=== PATIENT | female | born 2000 | race Caucasian/White ===

== ENCOUNTER 2022-10-07 07:44 | Emergency (ER) | payer OTHER, SELFPAY ==
[2022-10-07] VITALS (27 sets, daily range): BP systolic 103–154; BP diastolic 56–101; PULSE 68–99; RESP 11–72; TEMP 36.6; O2SAT 94–100
--- NOTE | 2022-10-07 08:55 | ED.SKABFB ---
HPI - Skin/Abscess/Foreign Bdy General Chief complaint: Skin/Abscess/Foreign Body Stated complaint: abcess on lt leg Time Seen by Provider: 10/07/22 08:54 Source: patient Mode of arrival: Ambulatory Limitations: other History of Present Illness HPI narrative: This is a 21-year-old female with history of Down syndrome with prior cervical fusion and developed postoperative complications and meningitis when she was young. Patient is mostly nonverbal. Patient has been healthy otherwise. They recently traveled to the area and parents notice she is been walking little bit funny and patient had showed her sister that she has not infection in the left inner thigh. Parents noted significant swelling redness. They do note a fever 2 days ago and had 1 or 2 episodes of vomiting. She is had some food last night as well as 1st thing this morning without any persistent fevers or vomiting. Patient is been walking kind of gingerly but otherwise normal motion. She did not tell her parents about this before that time. She is had an incision and drainage for abscess once in the past but was on her arm. She is not had skin infections otherwise in the past. She is otherwise healthy no daily medications. She did have the prior cervical fusion but no other surgeries. She had issues with her surgery but mom states that she is had several conscious sedations in the past without any complications. She is to avoid sulfa medications secondary to her Down syndrome but no other drug allergies. No tobacco, alcohol or illicit. Patient is accompanied by her father. They are visiting the area currently but live in [place]. Related Data Previous Rx's Medication Instructions Recorded doxycycline hyclate 100 mg tablet 100 mg PO BID #14 tabs 10/07/22 Allergies Allergy/AdvReac Type Severity Reaction Status Date / Time No Known Drug Allergies Allergy Verified 10/07/22 08:01 Review of Systems Review of Systems ROS Unobtainable: All systems reviewed & are unremarkable except as noted in HPI and below Patient History Social History Smoking Status: Never smoker Smoking Status: Never smoker alcohol intake frequency: 0-2 drinks per day Substance Use Type: does not use Exam Narrative Exam Narrative: GEN: well nourished, well appearing female, alert and oriente, patient appears to be in mild distress. HEENT: Atraumatic, pupils are equal round reactive to light, extraocular movements are intact, nares are clear, Throat is clear without any exudates, erythema, tonsillar enlargement or uvular deviation HEART: Regular rate and rhythm without murmur, clicks, rubs. Pulses are equal in upper and lower extremities LUNGS:Lungs clear to auscultation, no wheezes, rales, crackles, chest moves symmetrically ABD:bowel sounds normal, soft, non-tender, no guarding, rebound, rigidity, no masses noted, no hepatosplenomegaly :No CVA tenderness MSCL: Patient has significant swelling that is about 2 cm protruding about 2 cm that is indurated with fluctuance and appears to be abscess. There is some erythema surrounding. Patient is nontender in the surrounding area or in the inguinal area or vaginal area. Patient has normal range of motion otherwise. It is very tender. No swelling of the lower extremity otherwise. 2+ pulses. Normal sensation throughout. No muscle atrophy, muscles strength 5/5 upper and lower extremities, full range of motion, normal gait NEURO:CN 2-12 intact, sensation normal. SKIN: see above. Initial Vital Signs Initial Vital Signs: Vital Signs Temperature 97.8 F 10/07/22 07:54 Pulse Rate 80 10/07/22 07:54 Respiratory Rate 20 10/07/22 07:54 Blood Pressure 154/91 H 10/07/22 07:54 Pulse Oximetry 100 10/07/22 07:54 Oxygen Delivery Method Room Air 10/07/22 07:54 Procedures Abscess I/D I&D #1: Site: lower extremity (thigh) Side (if applicable): left Sedation/analgesia: other (ketamine) Local Anesthetic: lidocaine 2% Amount of anesthesia used (mL): 4 Technique: needle aspiration and incised with #11 blade Amount of fluid expressed (mL): 15 Irrigation: Yes Packing used?: none Procedural Sedation Consent signed: Yes Time out performed: Yes Indication: incision and drainage of abscess ASA Class: II Mallampati Airway Classification: Class II Time of Last PO Intake: 07:30 Preparation: gambling monitor applied, pulse oximeter, capnometry used, supplemental O2 applied, suction/airway equipment at bedside and IV secured Ketamine: IM Ketamine dose (mg): 60 ED Sedation Level: Moderate (Concious) Patient Tolerated Procedure: Well and No complications Complications: significant emergence reaction (moderate emergency reaction, lights off/calm voices. ) Course Orders Ordered: ED Orders 10/07/22 10:30 Wound Culture and Gram Stain Stat Discontinued Medications Acetaminophen (Acetaminophen 325 Mg Tablet) 650 mg PO NOW ONE Stop: 10/07/22 10:39 Last Admin: 10/07/22 10:44 Dose: 650 mg Documented By: NR Doxycycline Hyclate (Doxycycline Hyclate 100 Mg Tablet) 100 mg PO NOW ONE Stop: 10/07/22 10:39 Last Admin: 10/07/22 10:44 Dose: 100 mg Documented By: LEN Ketamine HCl (Ketamine 500 Mg/10 Ml Inj) 90 mg 1 mg/kg (90 mg) IV NOW ONE Stop: 10/07/22 09:39 Last Admin: 10/07/22 10:35 Dose: Not Given Documented By: TUAN Ketamine HCl (Ketamine 500 Mg/10 Ml Inj) 40 mg 1 mg/kg (40 mg) IV NOW ONE Stop: 10/07/22 10:00 Last Admin: 10/07/22 10:00 Dose: 40 mg Documented By: LEN Ketamine HCl (Ketamine 500 Mg/10 Ml Inj) 20 mg IM NOW ONE Stop: 10/07/22 10:15 Last Admin: 10/07/22 10:11 Dose: 20 mg Documented By: LEN Midazolam HCl (Midazolam 5 Mg/Ml Vial) 5 mg NASAL NOW ONE Stop: 10/07/22 10:16 Last Admin: 10/07/22 11:35 Dose: Not Given Documented By: TUAN Vital Signs Vital signs: Vital Signs - 8 hr 10/07/22 11:00 10/07/22 11:05 10/07/22 11:10 Pulse Rate 72 80 87 Respiratory Rate 14 12 18 Blood Pressure Pulse Oximetry Oxygen Delivery Method 10/07/22 11:14 10/07/22 11:14 10/07/22 11:15 Pulse Rate 73 73 Respiratory Rate 20 Blood Pressure 113/65 Pulse Oximetry 100 94 Oxygen Delivery Method Room Air 10/07/22 11:20 10/07/22 11:25 10/07/22 11:30 Pulse Rate 76 78 86 Respiratory Rate 14 Blood Pressure Pulse Oximetry 98 99 96 Oxygen Delivery Method 10/07/22 11:35 10/07/22 11:39 10/07/22 11:39 Pulse Rate 97 H 83 Respiratory Rate 12 11 L Blood Pressure 112/56 L Pulse Oximetry 97 99 Oxygen Delivery Method Room Air 10/07/22 11:40 10/07/22 11:45 Pulse Rate 86 79 Respiratory Rate 13 Blood Pressure Pulse Oximetry 98 98 Oxygen Delivery Method Room Air MDM - Skin/Abscess/Foreign Bdy Lab Data Labs: Point of Care Testing Test Results Negative MDM Narrative Medical decision making narrative: 21-year-old female with down syndrome and prior cervical fusion who presents with an abscess in the left inner thigh. Patient does not appear septic she is overall well-appearing. She does have a large abscess surprisingly has not burst at this point. It is protruding quite a bit. Did have put bedside ultrasound on there does appear to be a fluid collection it does not appear to be tracking deeper. Proximally 2 cm total incise. Patient is quite apprehensive and after discussion with patient's father as well as mother over the phone decision was made to proceed with conscious sedation instead of intranasal Versed or alternative methods. Patient has had procedural sedation in the past and sounds like tolerated them very well. Patient had procedural sedation here, took some additional medication and then patient did have some [id number] emergence reaction. Did not require additional medications had calming and patient continued to significantly improve. Patient is much more comfortable after I and D, placed on oral antibiotic. Strict return precautions. Discussed with family signs and symptoms to watch for and to check her once to twice daily to make sure not significantly worsening as patient is unlikely to let them know. Discharge Plan Departure Patient Disposition: Home Clinical Impression: Abscess of left thigh Instructions: DI for Skin Abscess Activity Restrictions/Additional Instructions: You had an incision and drainage of the abscess on your left thigh. This should start to heal, take antibiotics until completed. Prescription [facility] in [place]. You can return at any time for wound recheck. You may take Tylenol and/or ibuprofen up to every 6 hours as needed for pain. You did have some mild to moderate emergence reaction with the ketamine today, no additional medications were given but I would share this with your future providers if you have other procedural sedations. Wound Care: Keep wound(s) clean and dry. Wash or soak twice daily with soap and water only and pat dry. You can use a warm wash cloth for 20 minutes to the area 3-4 times a day to encourage drainage. Do not use over the counter products (alcohol or peroxide)on the wounds unless instructed by a physician. You can use a triple antibiotic ointment twice daily to the affected area. If wound condition worsens (increased/expanding redness, developing fluid blisters, or worsening pain), either contact your doctor for an urgent re-assessment , or return to the Emergency Department. Return to the Emergency Department for any new or worsening symptoms. Return if fever greater than 100.4 Fahrenheit, increased swelling, increasing pain or worsening symptoms such as increased discharge or spreading redness. Prescriptions: New doxycycline hyclate 100 mg tablet 100 mg PO BID Qty: 14 0RF Stand Alone Forms: Patient Portal/API
--- NOTE | 2022-10-07 09:55 | PC.NURSE ---
Addendum entered by Tayler Estrada R.N. 10/07/22 09:56: father states she only told her sister about it yesterday but she was vomiting t-2days and running a fever. use of ibuprofen for these symptoms. unknown how long actual abcess has been present Original Note: golf ball size lump on left inner thigh. red and swollen with some dry skin around it. patient found guarding site and appears tender to palpation.
[2022-10-07] MEDS: KETAMINE 500 MG/10 ML INJ 40 MG IV (10:00)
[2022-10-07] MEDS: KETAMINE 500 MG/10 ML INJ 20 MG IM (10:11)
--- NOTE | 2022-10-07 10:28 | PC.NURSE ---
pt given ketamine. slight hyperventalation during and at end of procedure. no intervention required. monitored with Rt and RN at bedside. lights turned down low.
[2022-10-07] MEDS: ACETAMINOPHEN 325 MG TABLET 650 MG PO (10:44)
[2022-10-07] MEDS: DOXYCYCLINE HYCLATE 100 MG TABLET PO (10:44)
--- NOTE | 2022-10-07 10:54 | PC.NURSE ---
pt up to commode to urinate. patient appears more awake. states it is hurting, agrees to take oral pain medications. took one pill at a time. pt then back into bed with 2rn standby assist. Pt states she is feeling funny but is mainly crying cause it hurts. patient given pain meds and wants to take a nap. pt now appears much more relaxed.
== END 2022-10-07 11:47 | disposition home or self-care (01) ==
PROVIDERS: Emergency Provider Emergency Medicine
DX: L02.416 Cutaneous abscess of left lower limb (principal)
CPT/HCPCS: 10060; 87070; 87075; 87205; 99152; 99284